=== PATIENT | female | born 1950 | race Two or more races ===

== ENCOUNTER 2018-09-22 15:30 | Emergency (ER) | payer OTHER ==
[~2018-09-22] VITALS: Ht 172.7 cm; Wt 133.4 kg
[~2018-09-22 15:30] MED LIST: AMITIZA24 MCG; AVALIDE 150-12.1 TA1; CLEARLAX119 GM; DULCOLAX STOOL100 MG PO; KETO10TA2 PO; ORPH100T PO; TENORMIN25 MG
== END 2018-09-22 22:18 | disposition home or self-care (01) ==
LOC: ER 15:30
DX: G57.01 Lesion of sciatic nerve, right lower limb (principal)

== ENCOUNTER 2018-10-21 12:37 | Emergency (ER) | payer OTHER ==
[~2018-10-21] VITALS: Ht 172.7 cm; Wt 129.7 kg
[2018-10-21] MEDS ORDERED: LASIX20 MG PO (13:55)
[2018-10-21] MEDS ORDERED: CARDURA1 MG PO (13:55)
[2018-10-21] MEDS ORDERED: TENORMIN25 MG PO (13:56)
[2018-10-21] MEDS ORDERED: ATACAND32 MG PO (13:56)
[2018-10-21] MEDS ORDERED: MEDROL4 MG PO (13:57)
[2018-10-21] MEDS ORDERED: LEVAQUIN500 MG PO (13:58)
[2018-10-21] MEDS ORDERED: MORGIDOX100 MG PO (13:58)
[2018-10-21] MEDS ORDERED: BIOTINEX PO (13:59)
== END 2018-10-21 22:37 | disposition home or self-care (01) ==
LOC: ER 12:37
DX: R60.0 Localized edema (principal); R06.02 Shortness of breath; T78.49XA Other allergy, initial encounter; X58.XXXA Exposure to other specified factors, initial encounter; F41.8 Other specified anxiety disorders

== ENCOUNTER 2018-11-04 12:19 | Emergency (ER) | payer OTHER ==
[~2018-11-04] VITALS: Ht 172.7 cm; Wt 137.4 kg
[~2018-11-04 12:19] MED LIST changes: +ATACAND32 MG PO; +BIOTINEX PO; +CARDURA1 MG PO; +LASIX20 MG PO; +LEVAQUIN500 MG PO; +MEDROL4 MG PO; +MORGIDOX100 MG PO; +TENORMIN25 MG PO
== END 2018-11-04 16:15 | disposition home or self-care (01) ==
LOC: ER 12:19
DX: L97.818 Non-pressure chronic ulcer of other part of right lower leg with other specified severity (principal); M79.604 Pain in right leg

== ENCOUNTER 2019-01-09 17:28 | Emergency (ER) | payer OTHER ==
[~2019-01-09] VITALS: Ht 172.7 cm; Wt 139.3 kg
== END 2019-01-09 20:28 | disposition home or self-care (01) ==
LOC: ER 17:28
DX: R06.02 Shortness of breath (principal); I87.2 Venous insufficiency (chronic) (peripheral)

== ENCOUNTER 2021-07-26 13:07 | Outpatient (CLI) | payer OTHER | END 2021-07-26 13:12 | disposition home or self-care (01) | LOC: RAD 13:07 | PROVIDERS: ATTEND Orthopaedic Surgery | DX: M25.551 Pain in right hip (principal); M25.552 Pain in left hip ==

== ENCOUNTER 2021-07-27 09:11 | Outpatient (CLI) | payer OTHER ==
[2021-07-28] MEDS ORDERED: RAMIPRIL10 MG PO (13:29)
[2021-07-28] MEDS ORDERED: HYDRALAZINE HCL25 MG PO (13:30)
[2021-07-28] MEDS ORDERED: MAGNESIUM500 MG PO (13:30)
== END 2021-07-27 09:12 | disposition home or self-care (01) ==
LOC: NUCLEAR 09:11
PROVIDERS: ATTEND Orthopaedic Surgery
DX: I87.2 Venous insufficiency (chronic) (peripheral) (principal); M25.462 Effusion, left knee

== ENCOUNTER 2021-07-28 12:55 | Emergency (ER) | payer OTHER ==
[~2021-07-28] VITALS: Ht 172.7 cm; Wt 147.4 kg
[2021-07-28] MEDS ORDERED: RAMIPRIL10 MG PO (13:29)
[2021-07-28] MEDS ORDERED: HYDRALAZINE HCL25 MG PO (13:30)
[2021-07-28] MEDS ORDERED: MAGNESIUM500 MG PO (13:30)
== END 2021-07-28 19:39 | disposition home or self-care (01) ==
LOC: ER 12:55
DX: R10.32 Left lower quadrant pain (principal); L97.318 Non-pressure chronic ulcer of right ankle with other specified severity; B95.61 Methicillin susceptible Staphylococcus aureus infection as the cause of diseases classified elsewhere

== ENCOUNTER 2021-07-30 16:49 | Emergency (ER) | payer OTHER ==
[~2021-07-30] VITALS: Ht 172.7 cm; Wt 145.1 kg
[~2021-07-30 16:49] MED LIST changes: +HYDRALAZINE HCL25 MG PO; +MAGNESIUM500 MG PO; +RAMIPRIL10 MG PO
[2021-07-30] MEDS ORDERED: ALDACTONE25 MG PO (17:05)
[2021-07-30] MEDS ORDERED: NORFLEX100MG PO (18:32)
[2021-07-30] MEDS ORDERED: KETO10TA2 PO (18:32)
== END 2021-07-30 18:55 | disposition home or self-care (01) ==
LOC: ER 16:49
DX: S30.0XXA Contusion of lower back and pelvis, initial encounter (principal); W06.XXXA Fall from bed, initial encounter; Y93.89 Activity, other specified; Y92.092 Bedroom in other non-institutional residence as the place of occurrence of the external cause; Y99.8 Other external cause status

== ENCOUNTER 2021-08-26 11:11 | Outpatient (CLI) | payer OTHER ==
[~2021-08-26 11:11] MED LIST changes: +ALDACTONE25 MG PO; +NABUMETONE750 MG PO; +NORFLEX100MG PO
[2021-09-22] MEDS ORDERED: ETODOLAC300 MG PO (12:19)
[2021-09-22] MEDS ORDERED: CYCLOBENZAPRINE10 MG PO (12:19)
== END 2021-08-26 11:45 | disposition home or self-care (01) ==
LOC: RAD 11:11
PROVIDERS: ATTEND Surgery
DX: M80.00XA Age-related osteoporosis with current pathological fracture, unspecified site, initial encounter for fracture (principal)

== ENCOUNTER 2021-08-30 08:45 | Outpatient (CLI) | payer OTHER ==
[2021-09-22] MEDS ORDERED: ETODOLAC300 MG PO (12:19)
[2021-09-22] MEDS ORDERED: CYCLOBENZAPRINE10 MG PO (12:19)
== END 2021-08-30 08:50 | disposition home or self-care (01) ==
LOC: NUCLEAR 08:45
PROVIDERS: ATTEND Surgery
DX: I73.9 Peripheral vascular disease, unspecified (principal)

== ENCOUNTER 2021-10-31 11:05 | Outpatient (CLI) | payer OTHER ==
[~2021-10-31 11:05] MED LIST changes: +CYCLOBENZAPRINE10 MG PO; +ETODOLAC300 MG PO
== END 2021-10-31 11:10 | disposition home or self-care (01) ==
LOC: MRI 11:05
PROVIDERS: ATTEND Surgery
DX: S99.911A Unspecified injury of right ankle, initial encounter (principal)
CPT/HCPCS: 73718

== ENCOUNTER 2021-11-23 13:10 | Emergency (ER) | payer OTHER ==
[~2021-11-23] VITALS: Ht 172.7 cm; Wt 140.6 kg
[2021-11-23] MEDS ORDERED: MONTELUKAST SOD10 MG PO (14:28)
[2021-11-23] MEDS ORDERED: APRESOLINE 10MG10 MG PO (14:30)
[2021-11-23] MEDS ORDERED: RAMIPRIL10 MG PO (14:31)
[2021-11-23] MEDS ORDERED: DICLOFENAC SOD100 GM TOP (16:57)
[2021-11-23] MEDS ORDERED: ORPHENADRINE C100 MG PO (17:03)
[2021-11-23] MEDS ORDERED: TYLENOL ARTHRI650 MG PO (17:03)
== END 2021-11-23 17:15 | disposition home or self-care (01) ==
LOC: ER 13:10
DX: M94.0 Chondrocostal junction syndrome [Tietze] (principal); M62.838 Other muscle spasm; I11.9 Hypertensive heart disease without heart failure; Z88.0 Allergy status to penicillin

== ENCOUNTER 2022-04-19 09:00 | Outpatient (CLI) | payer OTHER ==
[~2022-04-19 09:00] MED LIST changes: +APRESOLINE 10MG10 MG PO; +DICLOFENAC SOD100 GM TOP; +MONTELUKAST SOD10 MG PO; +ORPHENADRINE C100 MG PO; +TYLENOL ARTHRI650 MG PO
== END 2022-04-19 09:10 | disposition home or self-care (01) ==
LOC: SONOGRAMA 09:00
PROVIDERS: ATTEND Internal Medicine
DX: I11.9 Hypertensive heart disease without heart failure (principal); N39.0 Urinary tract infection, site not specified; D49.9 Neoplasm of unspecified behavior of unspecified site

== ENCOUNTER 2022-04-25 12:15 | Outpatient (CLI) | payer OTHER | END 2022-04-25 12:16 | disposition home or self-care (01) | LOC: RAD 12:15 | PROVIDERS: ATTEND Physical Medicine & Rehabilitation | DX: M54.50 Low back pain, unspecified (principal) ==

== ENCOUNTER 2022-06-03 11:59 | Emergency (ER) | payer OTHER ==
[~2022-06-03] VITALS: Ht 172.7 cm; Wt 131.5 kg
== END 2022-06-03 15:15 | disposition home or self-care (01) ==
LOC: ER 11:59
DX: R05.9 Cough, unspecified (principal); Z88.0 Allergy status to penicillin

== ENCOUNTER 2022-06-14 12:39 | Inpatient (IN) | payer OTHER ==
[~2022-06-14] VITALS: Ht 264.2 cm; Wt 127.0 kg
[2022-06-18] MEDS ORDERED: CLOPIDOGREL BIS75 MG (10:46)
[2022-06-18] MEDS ORDERED: FUROSEMIDE20 MG (10:46)
[2022-06-18] MEDS ORDERED: SPIRONOLACTONE25 MG (10:46)
[2022-06-18] MEDS ORDERED: BACLOFEN20 MG (10:46)
[2022-06-18] MEDS ORDERED: GABAPENTIN300 M2 (10:46)
[2022-06-18] MEDS ORDERED: ST. JOSEPH ASPI81 M2 (10:46)
[2022-06-18] MEDS ORDERED: TAMSULOSIN HCL0.4 MG (10:47)
[2022-06-18] MEDS ORDERED: VERAPAMIL ER240 MG (10:47)
== END 2022-06-21 17:59 | disposition home or self-care (01) | DRG 623 ==
LOC: ER 12:39 → SURG 23:11 → SEC-K 23:11 → SURG 06-15 04:31 → SEC-K 06-15 06:38 → SURG 06-15 06:39
PROVIDERS: ADMIT Internal Medicine; ATTEND Internal Medicine
PROC: B44GZZZ Ultrasonography of Left Lower Extremity Arteries (ICD-10-PCS; 2022-06-14)
PROC: 3E0F7SF Introduction of Other Gas into Respiratory Tract, Via Natural or Artificial Opening (ICD-10-PCS; 2022-06-14)
PROC: 0JBR0ZZ Excision of Left Foot Subcutaneous Tissue and Fascia, Open Approach (ICD-10-PCS; principal; 2022-06-15)
PROC: BQ2 Imaging, Non-Axial Lower Bones, Computerized Tomography (CT Scan) (ICD-10-PCS; 2022-06-15)
PROC: CP1Z1ZZ Planar Nuclear Medicine Imaging of Musculoskeletal System, All using Technetium 99m (Tc-99m) (ICD-10-PCS; 2022-06-16)
DX: E11.621 Type 2 diabetes mellitus with foot ulcer (principal); L03.116 Cellulitis of left lower limb; L97.328 Non-pressure chronic ulcer of left ankle with other specified severity; Z68.41 Body mass index [BMI] 40.0-44.9, adult; E11.628 Type 2 diabetes mellitus with other skin complications; E11.51 Type 2 diabetes mellitus with diabetic peripheral angiopathy without gangrene; I87.2 Venous insufficiency (chronic) (peripheral); B96.29 Other Escherichia coli [E. coli] as the cause of diseases classified elsewhere; E66.01 Morbid (severe) obesity due to excess calories; I10 Essential (primary) hypertension; G47.33 Obstructive sleep apnea (adult) (pediatric); Z20.822 Contact with and (suspected) exposure to COVID-19

== ENCOUNTER 2022-07-16 13:32 | Inpatient (IN) | payer OTHER ==
[~2022-07-16] VITALS: Ht 172.7 cm; Wt 131.5 kg
[~2022-07-16 13:32] MED LIST changes: +BACLOFEN20 MG; +CLOPIDOGREL BIS75 MG; +FUROSEMIDE20 MG; +GABAPENTIN300 M2; +SPIRONOLACTONE25 MG; +ST. JOSEPH ASPI81 M2; +TAMSULOSIN HCL0.4 MG; +VERAPAMIL ER240 MG
== END 2022-07-19 16:10 | disposition home or self-care (01) | DRG 593 ==
LOC: ER 13:32 → MEDI 20:59
PROVIDERS: ADMIT Internal Medicine; ATTEND Internal Medicine
PROC: 3E0F7SF Introduction of Other Gas into Respiratory Tract, Via Natural or Artificial Opening (ICD-10-PCS; principal; 2022-07-17)
DX: L97.528 Non-pressure chronic ulcer of other part of left foot with other specified severity (principal); L03.116 Cellulitis of left lower limb; Z68.41 Body mass index [BMI] 40.0-44.9, adult; B95.2 Enterococcus as the cause of diseases classified elsewhere; B37.2 Candidiasis of skin and nail; B96.89 Other specified bacterial agents as the cause of diseases classified elsewhere; I73.9 Peripheral vascular disease, unspecified; E66.01 Morbid (severe) obesity due to excess calories; G47.33 Obstructive sleep apnea (adult) (pediatric); G62.9 Polyneuropathy, unspecified; Z20.822 Contact with and (suspected) exposure to COVID-19

== ENCOUNTER 2023-01-08 09:07 | Outpatient (CLI) | payer OTHER | END 2023-01-08 09:13 | disposition home or self-care (01) | LOC: RAD 09:07 | PROVIDERS: ATTEND Internal Medicine | DX: R07.9 Chest pain, unspecified (principal) ==

== ENCOUNTER → 2023-01-21 | Outpatient (CLI) | payer OTHER | END | disposition home or self-care (01) | LOC: NUCLEAR 07:00 | PROVIDERS: ATTEND Internal Medicine | DX: I11.0 Hypertensive heart disease with heart failure (principal); I50.30 Unspecified diastolic (congestive) heart failure; R07.9 Chest pain, unspecified | CPT/HCPCS: 78452; 93017; A9500; J0153 ==

== ENCOUNTER 2023-06-01 10:39 | Emergency (ER) | payer OTHER ==
[~2023-06-01] VITALS: Ht 172.7 cm; Wt 136.1 kg
[2023-06-01 13:51] LABS: HEMATOCRIT 42.5 % (36.0-45.00); HEMOGLOBIN 13.5 g/dL (12.0-15.00); MEAN CELL VOLUME 82.2 fL (80.00-100.00); MEAN CORPUSCULAR HEMOGLOBIN 26.2 pg (27.00-32.0); MEAN CORPUSCULAR HGB CONC 31.9 g/dl (32.0-36.0); PLATELET COUNT 250 K/uL (150-450); RED BLOOD COUNT 5.17 M/uL (4.00-6.00); RED CELL DISTRIBUTION WIDTH 15.4 % (11.5-14.5)
[2023-06-01 14:14] LABS: ERYTHROCYTE SEDIMENTATION RATE 46 mm/hr
[2023-06-01 14:23] LABS: ALBUMIN 3.7 gm/dL (3.4-5.0); BILIRUBIN TOTAL 0.32 mg/dL (0.3-1.2); CALCIUM 9.3 mg/dL (8.5-10.1); CREATININE SERUM 0.58 mg/dL (0.55-1.02); GFR 102.19; GLOBULINA 4.2 G/DL (2.4-3.5); POTASSIUM 4.21 mEq/L (3.5-5.1); TOTAL PROTEIN 7.9 gm/dL (6.4-8.2)
[2023-06-01 14:29] LABS: C-REACTIVE PROTEIN 1.68 MG/DL (0.00-0.29)
== END 2023-06-01 16:21 | disposition home or self-care (01) ==
LOC: ER 10:39
PROVIDERS: Emergency Medicine
DX: L97.528 Non-pressure chronic ulcer of other part of left foot with other specified severity (principal); Z88.0 Allergy status to penicillin; I10 Essential (primary) hypertension

== ENCOUNTER 2023-09-21 14:32 | Emergency (ER) | payer OTHER ==
[~2023-09-21] VITALS: Ht 172.7 cm; Wt 136.1 kg
[2023-09-21 17:22] LABS: HEMATOCRIT 43.2 % (36.0-45.00); HEMOGLOBIN 14.2 g/dL (12.0-15.00); MEAN CELL VOLUME 81.4 fL (80.00-100.00); MEAN CORPUSCULAR HEMOGLOBIN 26.7 pg (27.00-32.0); MEAN CORPUSCULAR HGB CONC 32.7 g/dl (32.0-36.0); PLATELET COUNT 208 K/uL (150-450); RED BLOOD COUNT 5.31 M/uL (4.00-6.00); RED CELL DISTRIBUTION WIDTH 14.9 % (11.5-14.5)
[2023-09-21 17:57] LABS: ALBUMIN 3.5 gm/dL (3.4-5.0); BILIRUBIN TOTAL 0.17 mg/dL (0.3-1.2); CALCIUM 9.1 mg/dL (8.5-10.1); CREATININE SERUM 0.75 mg/dL (0.55-1.02); GFR 75.96; GLOBULINA 3.7 G/DL (2.4-3.5); INR 0.98; PARTIAL THROMBOPLASTIN TIME 28.3 SECONDS (22.0-34.0); POTASSIUM 4.16 mEq/L (3.5-5.1); PROTHROMBIN TIME 10.3 SECONDS (9.0-11.5); TOTAL PROTEIN 7.2 gm/dL (6.4-8.2)
[2023-09-21 17:59] LABS: URINE APPEARANCE Cloudy; URINE BILIRRUBIN Negative (NEGATIVE); URINE BLOOD Negative; URINE COLOR Yellow; URINE GLUCOSE Negative (NEGATIVE); URINE LEUKOCYTE Moderate; URINE NITRATE Positive; URINE PROTEIN Negative (NEGATIVE)
[2023-09-21 18:00] LABS: URINE BACTERIA 3254.5 uL (0.0-1933); URINE EPITHELIAL CELLS 93.2 uL (0.0-38.8); URINE WBC 75.7 uL (0.0-23.2)
[2023-09-21] MEDS ORDERED: levoFLOXacin 500 MG TABLET PO ONE (23:00)
[2023-09-21] MEDS ORDERED: FUROsemide 40 MG TABLET PO ONE (23:00)
[2023-09-21 23:15] LABS: ABG PH 7.386 (7.35-7.45); ABG PO2 72.6 mmHg (80-100); ABG pCO2 43.3 mmHg (35-45); BASE EXCESS 0.2 mmol/l; BICARBONATE 25.4 mmol/l (23-25); SaO2 94.1 %; Tco2 26.7 mmol/l
[2023-09-21] MEDS ORDERED: LEVALBUTEROL HCL 0.63 MG/3 ML SOLUTION IH ONE (23:15)
[2023-09-21 23:16] LABS: allen test SATISFACTORY; o2 21 %; puncture site RADIAL RIGHT
[2023-09-22] MEDS ORDERED: GUAIFENESIN/DEXTROMETHORPHAN 100 MG/5 ML ML PO ONE (00:15)
== END 2023-09-22 01:42 | disposition home or self-care (01) ==
LOC: ER 14:33
PROVIDERS: Emergency Medicine
DX: E66.01 Morbid (severe) obesity due to excess calories (principal); Z87.898 Personal history of other specified conditions; N39.0 Urinary tract infection, site not specified; R05.9 Cough, unspecified; R06.02 Shortness of breath; I10 Essential (primary) hypertension; Z88.0 Allergy status to penicillin

== ENCOUNTER 2023-09-22 13:05 | Emergency (ER) | payer OTHER ==
[~2023-09-22] VITALS: Ht 172.7 cm; Wt 136.1 kg
[2023-09-22] MEDS ORDERED: 0.9 % SODIUM CHLORIDE 1,000 ML IV STA (14:39)
[2023-09-22 15:13] LABS: HEMATOCRIT 46.2 % (36.0-45.00); HEMOGLOBIN 15.3 g/dL (12.0-15.00); MEAN CELL VOLUME 80.8 fL (80.00-100.00); MEAN CORPUSCULAR HEMOGLOBIN 26.7 pg (27.00-32.0); MEAN CORPUSCULAR HGB CONC 33.1 g/dl (32.0-36.0); PLATELET COUNT 200 K/uL (150-450); RED BLOOD COUNT 5.72 M/uL (4.00-6.00); RED CELL DISTRIBUTION WIDTH 15.1 % (11.5-14.5)
[2023-09-22 15:36] LABS: CALCIUM 9.7 mg/dL (8.5-10.1); CREATININE SERUM 0.76 mg/dL (0.55-1.02); GFR 74.81; POTASSIUM 4.27 mEq/L (3.5-5.1)
[2023-09-22 15:38] LABS: URINE APPEARANCE Clear; URINE BILIRRUBIN Negative (NEGATIVE); URINE BLOOD Negative; URINE COLOR Yellow; URINE GLUCOSE Negative (NEGATIVE); URINE LEUKOCYTE Trace; URINE NITRATE Negative; URINE PROTEIN Negative (NEGATIVE)
[2023-09-22 15:41] LABS: URINE BACTERIA 225.5 uL (0.0-1933); URINE WBC 44.9 uL (0.0-23.2)
[2023-09-22 15:42] LABS: URINE RBC 1.8 uL (0.0-20.8)
[2023-09-22] MEDS ORDERED: DOCUSATE SODIUM 100MG CAP PO ONE (17:15)
[2023-09-22] MEDS ORDERED: LACTULOSE 20 G/30 ML BLIST.PACK PO ONE (17:15)
[2023-09-22] MEDS ORDERED: MINERAL OIL 30 ML BLIST.PACK PO ONE (18:30)
[2023-09-22] MEDS ORDERED: MAGNESIUM HYDROXIDE 30 ML BLIST.PACK PO ONE (18:30)
== END 2023-09-22 19:29 | disposition home or self-care (01) ==
LOC: ER 13:06
PROVIDERS: General Practice
DX: K59.00 Constipation, unspecified (principal); I10 Essential (primary) hypertension; Z88.0 Allergy status to penicillin; I50.9 Heart failure, unspecified
CPT/HCPCS: 36415; 74018; 93005; 96365; 99284; J3490

== ENCOUNTER 2023-09-24 17:31 | Inpatient (IN) | payer OTHER ==
[2023-09-24] MEDS ORDERED: IPRATROPIUM BROMIDE 0.5 MG/2.5 ML AMPUL.NEB IH SCH (20:55)
[2023-09-24] MEDS ORDERED: levoFLOXacin IN DEXTROSE 5 % 150 ML IV SCH (20:58)
[2023-09-24] MEDS ORDERED: ACETAMINOPHEN 500 MG GEL..CAP PO PRN (21:00)
[2023-09-24] MEDS ORDERED: ONDANSETRON HCL 4 MG in 0.9 % SODIUM CHLORIDE 50 ML IV PRN (21:00)
[2023-09-24] MEDS ORDERED: 0.9 % SODIUM CHLORIDE 1,000 ML IV SCH (21:00)
[2023-09-24] MEDS ORDERED: TEMAZEPAM 15 MG CAPSULE PO SCH (21:00)
[2023-09-24] MEDS ORDERED: METHYLPREDNISOLONE SOD SUCC 125 MG VIAL IV ONE (21:15)
[2023-09-24 23:40] LABS: INR 1.02; PARTIAL THROMBOPLASTIN TIME 28.1 SECONDS (22.0-34.0); PROTHROMBIN TIME 10.7 SECONDS (9.0-11.5)
[2023-09-25] MEDS ORDERED: GUAIFENESIN/DEXTROMETHORPHAN 100 MG/5 ML ML PO SCH
[2023-09-25 00:38] LABS: URINE APPEARANCE Clear; URINE BILIRRUBIN Negative (NEGATIVE); URINE BLOOD Negative; URINE COLOR Yellow; URINE GLUCOSE Negative (NEGATIVE); URINE LEUKOCYTE Negative; URINE NITRATE Negative; URINE PROTEIN Negative (NEGATIVE); URINE UROBILINOGEN 0.2 E.U./dl
[2023-09-25 00:41] LABS: URINE EPITHELIAL CELLS 11.1 uL (0.0-38.8); URINE RBC 3.7 uL (0.0-20.8); URINE WBC 1.8 uL (0.0-23.2)
[2023-09-25] MEDS ORDERED: RAMIPRIL 5 MG CAPSULE PO SCH (09:00)
[2023-09-25] MEDS ORDERED: ENOXAPARIN SODIUM 40 MG/0.4 ML SYRINGE SUBCUTANEO SCH (09:00)
[2023-09-25] MEDS ORDERED: hydrALAZINE HCL 25 MG TABLET PO SCH (09:00)
[2023-09-25] MEDS ORDERED: SPIRONOLACTONE 25 MG TABLET PO SCH (09:00)
[2023-09-25] MEDS ORDERED: BISACODYL 5 MG TABLET.EC PO SCH (09:00)
[2023-09-25] MEDS ORDERED: FUROsemide 20 MG/2 ML VIAL IV SCH ×2 (09:00→17:00)
[2023-09-25] MEDS ORDERED: LOSARTAN POTASSIUM 50 MG TABLET PO SCH (11:24)
[2023-09-25] MEDS ORDERED: BUDESONIDE 0.5 MG/2 ML AMPUL.NEB IH SCH (11:25)
[2023-09-25] MEDS ORDERED: ZINC SULFATE 220 MG CAPSULE PO SCH (11:34)
[2023-09-25] MEDS ORDERED: CHOLECALCIFEROL (VITAMIN D3) 5,000 UNITS TABLET PO SCH (11:35)
[2023-09-25] MEDS ORDERED: ASCORBIC ACID 500 MG TABLET PO SCH (11:36)
[2023-09-25] MEDS ORDERED: PANTOPRAZOLE SODIUM 40 MG/VIAL VIAL IV PUSH SCH (11:37)
[2023-09-25] MEDS ORDERED: IPRATROPIUM BROMIDE 0.5 MG/2.5 ML AMPUL.NEB IH SCH (12:00)
[2023-09-25] MEDS ORDERED: METHYLPREDNISOLONE SOD SUCC 40 MG VIAL IV SCH (13:00)
[2023-09-25] MEDS ORDERED: LEVALBUTEROL HCL 1.25 MG/3 ML SOLUTION IH SCH (13:00)
[2023-09-25] MEDS ORDERED: LACTULOSE 20 G/30 ML BLIST.PACK PO SCH (13:00)
[2023-09-25] MEDS ORDERED: GLYCERIN 2.1 GM SUPP.RECT RECTAL SCH (13:00)
[2023-09-25] MEDS ORDERED: hydrALAZINE HCL 50 MG TABLET PO SCH (13:00)
[2023-09-25 13:14] LABS: ABG PH 7.389 (7.35-7.45); ABG PO2 82.1 mmHg (80-100); ABG pCO2 43.2 mmHg (35-45); BASE EXCESS 0.3 mmol/l; SaO2 95.9 %
[2023-09-25 13:15] LABS: BICARBONATE 25.5 mmol/l (23-25); Tco2 26.8 mmol/l
[2023-09-25 13:16] LABS: allen test SATISFACTORY; o2 32 %; puncture site RADIAL RIGHT
[2023-09-25] MEDS ORDERED: ENOXAPARIN SODIUM 60 MG/0.6 ML SYRINGE SUBCUTANEO SCH (17:00)
[2023-09-25 20:13] LABS: HEMATOCRIT 46.1 % (36.0-45.00); HEMOGLOBIN 15.5 g/dL (12.0-15.00); MEAN CELL VOLUME 79.8 fL (80.00-100.00); MEAN CORPUSCULAR HEMOGLOBIN 26.8 pg (27.00-32.0); MEAN CORPUSCULAR HGB CONC 33.6 g/dl (32.0-36.0); PLATELET COUNT 240 K/uL (150-450); RED BLOOD COUNT 5.78 M/uL (4.00-6.00); RED CELL DISTRIBUTION WIDTH 14.5 % (11.5-14.5)
[2023-09-25 20:19] LABS: ERYTHROCYTE SEDIMENTATION RATE 58 mm/hr
[2023-09-25 20:43] LABS: D DIMER 1.71 MG/L; INR 1.05; PARTIAL THROMBOPLASTIN TIME 27.8 SECONDS (22.0-34.0)
[2023-09-25 20:45] LABS: ALBUMIN 3.6 gm/dL (3.4-5.0); BILIRUBIN TOTAL 0.32 mg/dL (0.3-1.2); CALCIUM 9.1 mg/dL (8.5-10.1); CREATININE SERUM 0.68 mg/dL (0.55-1.02); FERRITIN 91.2 NG/ML (8-252); GFR 85.05; GLOBULINA 4.3 G/DL (2.4-3.5); POTASSIUM 4.28 mEq/L (3.5-5.1); TOTAL PROTEIN 7.9 gm/dL (6.4-8.2)
[2023-09-25 20:57] LABS: C-REACTIVE PROTEIN 0.88 MG/DL (0.00-0.29)
[2023-09-25] MEDS ORDERED: TEMAZEPAM 15 MG CAPSULE PO SCH (21:00)
[2023-09-25] MEDS ORDERED: MELATONIN 5 MG TABLET PO SCH (21:00)
[2023-09-25 21:01] LABS: MYCOPLASMA PNEUMONIAE IGM NON REACTIVE (NO REACTIVE)
[2023-09-26] MEDS ORDERED: VITAMIN B COMPLEX/LYSINE 1 ML ML PO SCH (09:00)
[2023-09-26] MEDS ORDERED: SODIUM CHLORIDE 0.45 % 1,000 ML IV SCH (10:30)
[2023-09-26] MEDS ORDERED: METHYLPREDNISOLONE SOD SUCC 40 MG VIAL IV SCH (13:00)
[2023-09-26 14:36] LABS: PH,URINE 5.5 (5.0-8.0); URINE APPEARANCE Clear; URINE BILIRRUBIN Negative (NEGATIVE); URINE BLOOD Large; URINE COLOR Yellow; URINE GLUCOSE Negative (NEGATIVE); URINE LEUKOCYTE Small; URINE NITRATE Negative; URINE PROTEIN 30 (NEGATIVE); URINE UROBILINOGEN 0.2 E.U./dl
[2023-09-26 14:37] LABS: URINE BACTERIA 180.1 uL (0.0-1933); URINE EPITHELIAL CELLS 10.3 uL (0.0-38.8); URINE RBC 1767.9 uL (0.0-20.8); URINE WBC 51.1 uL (0.0-23.2)
[2023-09-27] MEDS ORDERED: LOSARTAN POTASSIUM 50 MG TABLET PO SCH (09:00)
[2023-09-27] MEDS ORDERED: REMDESIVIR 100 MG VIAL IV ONE (10:30)
[2023-09-27] MEDS ORDERED: REMDESIVIR 100 MG VIAL IV SCH (12:00)
[2023-09-27] MEDS ORDERED: hydrALAZINE HCL 50 MG TABLET PO SCH (13:00)
[2023-09-27] MEDS ORDERED: TEMAZEPAM 15 MG CAPSULE PO SCH (23:15)
[2023-09-28 11:32] LABS: HEMATOCRIT 45.1 % (36.0-45.00); HEMOGLOBIN 14.9 g/dL (12.0-15.00); MEAN CELL VOLUME 82.1 fL (80.00-100.00); MEAN CORPUSCULAR HEMOGLOBIN 27.2 pg (27.00-32.0); MEAN CORPUSCULAR HGB CONC 33.1 g/dl (32.0-36.0); PLATELET COUNT 261 K/uL (150-450); RED BLOOD COUNT 5.49 M/uL (4.00-6.00); RED CELL DISTRIBUTION WIDTH 14.3 % (11.5-14.5)
[2023-09-28 11:48] LABS: CREATININE SERUM 1.09 mg/dL (0.55-1.02); GFR 49.34; POTASSIUM 4.8 mEq/L (3.5-5.1)
[2023-09-28] MEDS ORDERED: FUROsemide 20 MG TABLET PO SCH (15:05)
[2023-09-28] MEDS ORDERED: METHYLPREDNISOLONE SOD SUCC 40 MG VIAL IV SCH (21:00)
[2023-09-29] MEDS ORDERED: AMLODIPINE BESYLATE 5 MG TABLET PO SCH (15:53)
[2023-09-29] MEDS ORDERED: METHYLPREDNISOLONE ACETATE 80 MG/ML VIAL IM ONE (16:00)
[2023-09-30] MEDS ORDERED: LACTULOSE 20 G/30 ML BLIST.PACK PO SCH (01:00)
[2023-09-30] MEDS ORDERED: MINERAL OIL 30 ML BLIST.PACK PO SCH (01:00)
[2023-09-30] MEDS ORDERED: MAGNESIUM HYDROXIDE 30 ML BLIST.PACK PO SCH (01:00)
[2023-09-30] MEDS ORDERED: METHYLPREDNISOLONE ACETATE 80 MG/ML VIAL IM ONE (11:00)
[2023-09-30 12:01] LABS: ABG PH 7.417 (7.35-7.45); ABG PO2 73.1 mmHg (80-100); ABG pCO2 42.6 mmHg (35-45); BICARBONATE 26.8 mmol/l (23-25); SaO2 94.8 %; Tco2 28.1 mmol/l; allen test SATISFACTORY; o2 21 %; puncture site RADIAL LEFT
[2023-09-30 15:13] LABS: CALCIUM 9.4 mg/dL (8.5-10.1); CREATININE SERUM 0.81 mg/dL (0.55-1.02); GFR 69.5; POTASSIUM 4.96 mEq/L (3.5-5.1)
[2023-10-01] MEDS ORDERED: METHYLPREDNISOLONE SOD SUCC 40 MG VIAL IV SCH (09:00)
[2023-10-01] MEDS ORDERED: POLYETHYLENE GLYCOL 3350 238 GM POWDER PO ONE (10:30)
[2023-10-01] MEDS ORDERED: DIATRIZOATE MEGLUMINE, SODIUM 30 ML BOTTLE PO ONE (10:45)
[2023-10-02] MEDS ORDERED: POLYETHYLENE GLYCOL 3350 238 GM POWDER PO ONE (12:45)
== END 2023-10-03 15:21 | disposition home or self-care (01) | DRG 178 ==
LOC: SEC-K 17:31 → MEDJ 17:31 → O/R 09-25 13:17 → SEC-K 09-25 13:18 → MEDI 09-25 17:52 → SEC-K 09-25 19:14 → MEDI 09-25 20:27 → SEC-K 09-25 21:04 → MEDI 09-26 01:19 → SEC-K 09-26 01:36 → MEDJ 09-27 01:31
PROVIDERS: General Practice; Internal Medicine Infectious Disease; ADMIT Internal Medicine; ATTEND Internal Medicine
PROC: BW21ZZZ Computerized Tomography (CT Scan) of Abdomen and Pelvis (ICD-10-PCS; principal; 2023-09-24)
PROC: BW24ZZZ Computerized Tomography (CT Scan) of Chest and Abdomen (ICD-10-PCS; 2023-09-24)
PROC: BW21YZZ Computerized Tomography (CT Scan) of Abdomen and Pelvis using Other Contrast (ICD-10-PCS; 2023-10-01)
DX: U07.1 COVID-19 (principal); J45.901 Unspecified asthma with (acute) exacerbation; J20.9 Acute bronchitis, unspecified; I10 Essential (primary) hypertension; E03.9 Hypothyroidism, unspecified; E66.01 Morbid (severe) obesity due to excess calories; G47.30 Sleep apnea, unspecified
CPT/HCPCS: 240

== ENCOUNTER 2023-10-03 15:51 | Emergency (ER) | payer OTHER ==
[~2023-10-03] VITALS: Ht 172.7 cm; Wt 129.3 kg
== END 2023-10-03 17:43 | disposition home or self-care (01) ==
LOC: ER 15:51
DX: R06.02 Shortness of breath (principal); F41.1 Generalized anxiety disorder; F41.9 Anxiety disorder, unspecified; I10 Essential (primary) hypertension; Z88.0 Allergy status to penicillin

== ENCOUNTER 2023-10-25 09:22 | Outpatient (CLI) | payer OTHER | END 2023-10-25 09:32 | disposition home or self-care (01) | LOC: TOM 09:22 | DX: Z12.11 Encounter for screening for malignant neoplasm of colon (principal) ==

== ENCOUNTER 2024-06-09 12:22 | Outpatient (CLI) | payer OTHER | END 2024-06-09 12:23 | disposition home or self-care (01) | LOC: NUCLEAR 12:22 | PROVIDERS: ATTEND Psychiatry & Neurology Clinical Neurophysiology | DX: I73.9 Peripheral vascular disease, unspecified (principal); I87.2 Venous insufficiency (chronic) (peripheral) ==

== ENCOUNTER 2024-06-10 09:27 | Outpatient (CLI) | payer OTHER | END 2024-06-10 09:28 | disposition home or self-care (01) | LOC: NUCLEAR 09:27 | PROVIDERS: ATTEND Psychiatry & Neurology Clinical Neurophysiology | DX: I73.9 Peripheral vascular disease, unspecified (principal) ==

== ENCOUNTER 2024-11-05 07:14 | Outpatient (CLI) | payer OTHER | END 2024-11-05 07:15 | disposition home or self-care (01) | LOC: NUCLEAR 07:14 | DX: M19.90 Unspecified osteoarthritis, unspecified site (principal) | CPT/HCPCS: 78306; A9503 ==

== ENCOUNTER 2024-12-01 11:30 | Outpatient (CLI) | payer OTHER | END 2024-12-01 11:40 | disposition home or self-care (01) | LOC: RAD 11:30 | PROVIDERS: ATTEND Podiatrist Foot & Ankle Surgery | DX: M17.0 Bilateral primary osteoarthritis of knee (principal); M20.22 Hallux rigidus, left foot; M25.775 Osteophyte, left foot ==